=== PATIENT | female | born 1995 | race Caucasian/White ===

== ENCOUNTER 2021-06-12 17:01 | Emergency (ER) | payer OTHER ==
[~2021-06-12] VITALS: Ht 165.1 cm; Wt 128.0 kg
[2021-06-12 18:05] LABS: BARBITURATES NEG (NEG); BENZODIAZEPINES NEG (NEG); CANNABINOIDS POS (NEG); COCAINE NEG (NEG); METHADONE NEG (NEG); OPIATES NEG (NEG); PHENCYCLIDINE NEG (NEG)
[2021-06-12 18:14] LABS: AMPHETAMINE/METHAMPHETAMINE NEG (NEG)
[2021-06-12 18:17] LABS: U PREG PATIENT NEGATIVE (NEG)
[2021-06-12 18:24] LABS: CLARITY,URINE HAZY
[2021-06-12 18:30] LABS: BACTERIA,URINE MANY /HPF (0-FEW); COLOR,URINE ORANGE; WBC,URINE >40 /HPF (0-4)
[2021-06-12 18:31] LABS: SQUAMOUS EPITHELIAL CELL,UR MANY /LPF
[2021-06-12] MEDS ORDERED: ONDANSETRON ODT 4 MG TAB.RAPDIS PO ONE ×2 (18:45→21:15)
--- NOTE | 2021-06-12 19:58 | PHYS DOC ---
Past History Past Surgical History: No Surgical History, Cholecystectomy, General Adult EDM: Chief Complaint: HEADACHE HPI: HPI: ".. I ve had a headache since Wednesday.. it been constant.. I got a rapid flu and Covid at [facility] today.. they said they were negative. I did have a UTI earlier in month.. and was on antibiotics.. " Patient is a 26 year old female who presents with above hx and complaints of headache with dysuria. Patient denies any recent travel. No specific ill contacts. No history immunosuppression. Has had some facial pain with the associated headache. Patient has had some dysuria. Patient has had UTIs in the past. Patient normally follows at [facility]. Review of Systems: Review of Systems: Constitutional: Subjective complaints of fever or chills Eyes: Denies change in visual acuity HENT: Denies nasal congestion or sore throat Respiratory: Denies cough or shortness of breath Cardiovascular: Denies chest pain or edema GI: Denies abdominal pain, nausea, vomiting, bloody stools or diarrhea : Denies dysuria Musculoskeletal: Denies back pain or joint pain Integument: Denies rash Neurologic: Denies headache, focal weakness or sensory changes Endocrine: Denies polyuria or polydipsia Lymphatic: Denies swollen glands Psychiatric: Denies depression or anxiety Family History: Family History: Noncontributory to presentation Current Medications: Current Meds: Current Medications Medications (Trade) Dose Ordered Sig/Ruby Start Time Stop Time Status Last Admin Dose Admin Ondansetron HCl (Zofran Odt) 4 mg 1X ONCE 06/12/21 18:45 06/12/21 18:46 DC Allergies: Allergies: Allergies Coded Allergies Type Severity Reaction Last Updated Verified phenazopyridine Allergy Unknown 06/12/21 Yes Physical Exam: PE: Constitutional: Moderate acute distress, non-toxic appearance. [] HENT: Normocephalic, atraumatic, bilateral external ears normal, oropharynx moist, no oral exudates, nose swollen turbinates clear rhinorrhea. Maxillary tenderness. Eyes: PERRLA, EOMI, conjunctiva normal, no discharge. [] Neck: Normal range of motion, no tenderness, supple, no stridor. [] Cardiovascular:Heart rate regular rhythm, no murmur [] Lungs & Thorax: Bilateral breath sounds equal apex scattered wheezes auscultation [] Abdomen: Bowel sounds normal, soft, no tenderness, no masses, no pulsatile masses. Obese. Old surgery scars. Skin: Warm, dry, no erythema, no rash. [] Back: No tenderness, no CVA tenderness. [] Extremities: No tenderness, no cyanosis, no clubbing, ROM intact, no edema. [] Neurologic: Alert and oriented X 3, normal motor function, normal sensory function, no focal deficits noted. DTRs +2 patella brachial. Patient ambulatory without problems. [id number]. No drift. Psychologic: Affect anxious, judgement normal, mood normal. [] Current Patient Data: Labs: Laboratory Tests Test 06/12/21 17:18 Urine Collection Type Clean catch Urine Color [place] Urine Clarity Hazy Urine pH Urine Specific [place] Urine Protein (NEG-TRACE) Urine Glucose (UA) mg/dL (NEG) Urine Ketones (Stick) mg/dL (NEG) Urine Blood (NEG) Urine Nitrite (NEG) Urine Bilirubin (NEG) Urine Urobilinogen Dipstick mg/dL (0.2 mg/dL) Urine Leukocyte Esterase (NEG) Urine RBC 6-10 /HPF (0-2) Urine WBC >40 /HPF (0-4) Urine Squamous Epithelial Cells Many /LPF Urine Bacteria Many /HPF (0-FEW) Urine Test Negative (NEG) Urine Opiates Screen Neg (NEG) Urine Methadone Screen Neg (NEG) Urine Barbiturates Neg (NEG) Urine Phencyclidine Screen Neg (NEG) Urine Amphetamine/Methamphetamine Neg (NEG) Urine Benzodiazepines Screen Neg (NEG) Urine Cocaine Screen Neg (NEG) Urine Cannabinoids Screen Pos (NEG) Urine Ethyl Alcohol Neg (NEG) Vital Signs: Vital Signs Date Time Temp Pulse Resp B/P (MAP) Pulse Ox O2 Delivery O2 Flow Rate FiO2 06/12/21 18:02 100.0 113 16 135/94 (108) 99 EKG: EKG: [] Radiology/Procedures: Radiology/Procedures: [][address] [address] IMAGING REPORT Signed PATIENT: GERRY ABDUL DACCOUNT: [id number] : 1995 LOCATION: ER AGE: 26 SEX: F EXAM STATUS: REG ER ORD. PHYSICIAN: FANG WEBBER MD REASON: head ache x 4 days, sinus pressure PROCEDURE: CT HEAD AND MAXILLOFACIAL WO CT brain without contrast, CT maxillofacial without contrast. HISTORY: Headache, sinus pressure CT brain CT scan of brain was done without contrast. A skull fracture is not identified. There is no intracranial hemorrhage or subdural hematoma. There is no mass effect or shift of the midline. Ventricles are normal in size. There are no abnormal areas of increased or decreased attenuation. IMPRESSION: 1. No intracranial hemorrhage or acute finding noted intracranially. End impression CT maxillofacial Axial CT images were obtained through the facial bones and sinuses. Parotid and submandibular glands are unremarkable. There is a mucous retention cysts in the left maxillary antrum. There is a small wall fluid level in the right maxillary sinus. Sphenoid sinus has minimal minimal mucosal thickening on the left. Ethmoid sinuses are clear. Frontal sinuses are clear. Orbits are unremarkable. A facial fracture is not identified. Sagittal and coronal reconstructed images were reviewed. Ostiomeatal complex is clear on each side. Nasal septum is in the midline. Mastoids are normally aerated. Upper C-spine is in normal alignment. IMPRESSION: 1. Mucous retention cyst left maxillary antrum. 2. Small fluid level right maxillary sinus. 3. Mild mucosal thickening left sphenoid sinus. 4. Remaining sinuses are clear. 5. No other acute finding. PQRS Compliance Statement: One or more of the following individualized dose reduction techniques were utilized for this examination: 1. Automated exposure control 2. Adjustment of the mA and/or kV according to patient size 3. Use of iterative reconstruction technique Electronically signed by: Silvestre Cooper MD (06/12/2021 9:42 PM) [facility] DICTATED AND SIGNED BY: SILVESTRE COOPER MD DATE: 06/12/212135 CC: FANG WEBBER MD; PCP,UNKNOWN ~MTH0 0 Heart Score: C/O Chest Pain: N/A Risk Factors: Risk Factors: DM, Current or recent (<one month) smoker, HTN, HLP, family history of CAD, obesity. Risk Scores: Score 0 - 3: 2.5% MACE over next 6 weeks - Discharge Home Score 4 - 6: 20.3% MACE over next 6 weeks - Admit for Clinical Observation Score 7 - 10: 72.7% MACE over next 6 weeks - Early Invasive Strategies Course & Med Decision Making: Course & Med Decision Making Pertinent Labs and Imaging studies reviewed. (See chart for details) Patient presents ED. Patient push fluids. Patient take Tylenol and ibuprofen for pain. Patient use Flonase 2 sprays every night. Patient use normal saline rinses to nose at least 4 times a day and as needed. Patient take Keflex 500 mg 3 times a day. After completing Keflex take Diflucan 100 mg daily for 3 days. Follow-up urine culture. Return if any concerns. Follow-up PCR Covid testing. Impression: 1. UTI 2. Headaches 3. Sinusitis [] Dragon Disclaimer: Dragon Disclaimer: This electronic medical record was generated, in whole or in part, using a voice recognition dictation system. Departure Departure: Referrals: PCP,UNKNOWN (PCP) Scripts Fluconazole (DIFLUCAN) 100 Mg Tablet 100 MG PO DAILY for post antibiotics. for 3 Days, #3 TAB Prov: FANG WEBBER MD 06/12/21 Cephalexin (KEFLEX) 500 Mg Capsule 500 MG PO TID for uti, sinusitis for 10 Days, #30 CAP Prov: FANG WEBBER MD 06/12/21 FANG WEBBER MD Jun 12, 2021 19:58
[2021-06-12 20:03] VITALS: BP 113/70
[2021-06-12] MEDS ORDERED: HYDROcodon/IBUPROFEN 7.5/200MG 1 TAB TABLET PO ONE (21:15)
[2021-06-12] MEDS ORDERED: CIPROFLOXACIN HCL 500 MG TABLET PO ONE (21:30)
[2021-06-12] MEDS ORDERED: cefTRIAXone IM 1 GM VIAL IM ONE (21:30)
--- NOTE | 2021-06-12 21:44 | RAD ---
CT brain without contrast, CT maxillofacial without contrast. HISTORY: Headache, sinus pressure CT brain CT scan of brain was done without contrast. A skull fracture is not identified. There is no intracran ial hemorrhage or subdural hematoma. There is no mass effect or shift of the midline. Ventricles are normal in size. There are no abnormal areas of increased or decreased attenuation. IMPRESSION: 1. No intracranial hemorrhage or acute finding noted intracranially. End impression CT maxillofacial Axial CT images were obtained through the facial bones and sinuses. Parotid and submandibular glands are unremarkable. There is a mucous retention cysts in the left maxillary antrum. There is a small wa ll fluid level in the right maxillary sinus. Sphenoid sinus has minimal minimal mucosal thickening on the left. Ethmoid sinuses are clear. Frontal sinuses are clear. Orbits are unremarkable. A facial fr acture is not identified. Sagittal and coronal reconstructed images were reviewed. Ostiomeatal complex is clear on each side. N nighat septum is in the midline. Mastoids are normally aerated. Upper C-spine is in normal alignment. IMPRESSION: 1. Mucous retention cyst left maxillary antrum. 2. Small fluid level right maxillary sinus. 3. Mild mucosal thickening left sphenoid sinus. 4. Remaining sinuses are clear. 5. No other acute finding. PQRS Compliance Statement: One or more of the following individualized dose reduction techniques were utilized for this examinat ion: 1. Automated exposure control 2. Adjustment of the mA and/or kV according to patient size 3. Use of iterative reconstruction technique Electronically signed by: Silvestre Lechuga MD (06/12/2021 9:42 PM) [facility]
[2021-06-12] MEDS ORDERED: CEPH500C PO (21:53)
[2021-06-12] MEDS ORDERED: FLUC100T7 PO (21:54)
== END 2021-06-12 22:37 | disposition home or self-care (01) ==
LOC: ER 17:01
DX: R51.9 Headache, unspecified (principal); N39.0 Urinary tract infection, site not specified; J32.9 Chronic sinusitis, unspecified; Z32.02 Encounter for pregnancy test, result negative; Z90.49 Acquired absence of other specified parts of digestive tract
CPT/HCPCS: 36415; 70450; 70486; 80307; 81001; 81025; 87086; 96372; 99284; J0696; Q0162